=== PATIENT | male | born 1995 | race Two or more races ===

== ENCOUNTER 2017-11-27 19:05 | Emergency (ER) | payer OTHER ==
[2017-11-27 19:11] VITALS: BP 110/46
--- NOTE | 2017-11-27 20:56 | EDPHY ---
H & P Time Seen by Provider: 11/27/17 19:18 HPI/ROS: CHIEF COMPLAINT: Cut tele right rebolledo and left forearm HISTORY OF PRESENT ILLNESS: The patient is a 22-year-old male who was at [employer] and tripped and fell on an object on the ground. He is uncertain when he landed on but reports that he has had no trouble ambulating since or and has had no trouble moving his left wrist. Denies any illicit drug use other than 3 beers today. Denies head injury and loss consciousness. REVIEW OF SYSTEMS: Constitutional: No fever, no chills. Eyes: No discharge. ENT: No sore throat. Cardiovascular: No chest pain, no palpitations. Respiratory: No cough, no shortness of breath. Gastrointestinal: No abdominal pain, no vomiting. Genitourinary: No hematuria. Musculoskeletal: No back pain. Skin: No rashes. Neurological: No headache. Smoking Status: Never smoked Physical Exam: General Appearance: Alert and no distress. Eyes: Pupils equal and round no injection. Respiratory: Chest is nontender, lungs are clear to auscultation. Cardiac: regular rate and rhythm. Gastrointestinal: Abdomen is soft and nontender, no masses, bowel sounds normal. Musculoskeletal: Neck is supple and nontender. Extremities have full range of motion and are nontender. Skin: No rashes. 1 cm laceration to the left wrist. 5 cm laceration to the anterior right rebolledo. Constitutional: Initial Vital Signs Temperature (C) 37 C 11/27/17 19:09 Heart Rate 92 11/27/17 19:09 Blood Pressure 110/46 L 11/27/17 19:09 O2 Sat (%) 91 L 11/27/17 19:09 Allergies/Adverse Reactions: No Known Allergies Allergy (Unverified 11/27/17 19:09) Home Medications: Medication Instructions Recorded NK [No Known Home Meds] 11/27/17 Medical Decision Making Procedures: Procedure: Laceration repair. Verbal consent was obtained from the patient. The wrist and right rebolledo laceration on the left wrist and right rebolledo was anesthetized in the usual fashion. The wound was irrigated, draped and explored. There was no foreign body. There were no deep structures involved. No tendon injury was identified. The wound was repaired with 4 sutures4.0 Vicryl were placed to the chin then additional 7 horizontal mattress sutures4 replaced with 4.0 nylon to the right rebolledo. Two sutures were placed to the left wrist using simple interrupted sutures. The wound repair was well approximated. The procedure was performed by myself. ED Course/Re-evaluation: Laceration repair as detailed above. No evidence of foreign body, neurovascular injury, coagulopathy, tendon injury, foreign body. Departure - Departure Disposition: Home, Routine, Self-Care Clinical Impression: Leg laceration, Wrist laceration Condition: Good Instructions: Care For Your Stitches (ED) Additional Instructions: Follow-up in 10 days for suture removal of the rebolledo and 7 days for the wrist. Return to ER for any signs of infection or other worrisome symptoms. Referrals: NONE *PRIMARY CARE P,. [Primary Care Provider] - As per Instructions
== END 2017-11-27 21:05 | disposition home or self-care (01) ==
PROC: 0HQKXZZ Repair Right Lower Leg Skin, External Approach (ICD-10-PCS; principal; 2017-11-27)
PROC: 0HQEXZZ Repair Left Lower Arm Skin, External Approach (ICD-10-PCS; principal; 2017-11-27)
DX: S61.512A Laceration without foreign body of left wrist, initial encounter (principal); S81.811A Laceration without foreign body, right lower leg, initial encounter; W01.0XXA Fall on same level from slipping, tripping and stumbling without subsequent striking against object, initial encounter; Y92.89 Other specified places as the place of occurrence of the external cause; Y93.9 Activity, unspecified; Y99.9 Unspecified external cause status